=== PATIENT | female | born 1970 | race Hispanic/Latino ===

== ENCOUNTER → 2022-04-10 | Outpatient (CLI) | payer MEDICAID ==
[~2022-04-10] MED LIST: DIATR MEGLU/DIATRIZOATE SODIUM 30 ML BOTTLE ONE
== END | disposition home or self-care (01) ==
LOC: RAH 08:59
PROVIDERS: ATTEND Surgery
DX: K21.9 Gastro-esophageal reflux disease without esophagitis (principal); Z98.84 Bariatric surgery status; Z90.49 Acquired absence of other specified parts of digestive tract
CPT/HCPCS: 74240; Q9963